=== PATIENT | male | born 1945 | race Caucasian/White ===

== ENCOUNTER 2017-11-09 09:33 | Observation (INO) | payer MEDICARE ==
--- NOTE | 2017-11-09 10:07 | ED ---
GI/ HPI - HPI Summary HPI Summary: This patient is a 71 year old M presenting to [facility] with a chief complaint of bright red blood in diarrhea (3 times) that began at 0200 today. The patient rates the pain 0/10 in severity. Symptoms aggravated by nothing. Symptoms alleviated by nothing. Patient denies being on blood thinners currently. - History of Current Complaint Chief Complaint: EDGIBleed Time Seen by Provider: 11/09/17 09:47 Stated Complaint: RECTAL BLEEDING Hx Obtained From: Patient Onset/Duration: Started Hours Ago, Atraumatic, Still Present Timing: Constant Severity: Mild Current Severity: Mild Vaginal Bleeding Description: Bright Red Pain Intensity: 0 Associated Signs and Symptoms: Positive: Bright Red Blood w/Stool, Diarrhea Aggravating Factor(s): Nothing Alleviating Factor(s): Nothing - Allergy/Home Medications Allergies/Adverse Reactions: Allergies Allergy/AdvReac Type Severity Reaction Status Date / Time Sulfa (Sulfonamide Allergy Unknown Verified 11/09/17 09:53 Antibiotics) Reaction Details Home Medications: Home Medications Finasteride TAB* [Proscar TAB*] 5 mg PO DAILY 11/09/17 [History Confirmed ] Folic Acid 1 mg PO DAILY 11/09/17 [History Confirmed 11/09/17] Vitamin B-12 5,000 Mcg Tab Sl 5,000 mcg PO DAILY 11/09/17 [History Confirmed 02/16] predniSONE 8.5 mg PO DAILY 11/09/17 [History Confirmed 11/09/17] PMH/Surg Hx/FS Hx/Imm Hx Previously Healthy: No Endocrine/Hematology History: Denies: Hx Diabetes, Hx Thyroid Disease Cardiovascular History: Denies: Hx Hypertension, Hx Pacemaker/ICD Respiratory History: Denies: Hx Asthma, Hx Chronic Obstructive Pulmonary Disease (COPD) GI History: Denies: Hx Ulcer History: Reports: Other Problems/Disorders - 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 HERNIA SURGERY. PLANTERS WART REMOVED RIGHT HEEL AGE 18 Infectious Disease History: No Infectious Disease History: Reports: Hx Shingles Denies: Hx Clostridium Difficile, Hx Hepatitis, Hx Human Immunodeficiency Virus (HIV), Hx of Known/Suspected MRSA, Hx Tuberculosis, Hx Known/Suspected VRE , Hx Known/Suspected VRSA, History Other Infectious Disease, Traveled Outside the [place] in Last 30 Days - Family History Known Family History: Positive: Hypertension, Other - leukemia father, colon cancer brother, multiple myeloma, liver CA - Social History Occupation: Retired Lives: Alone Alcohol Use: None Hx Substance Use: No Substance Use Type: Reports: None Hx Tobacco Use: No Smoking Status (MU): Never Smoked Tobacco Review of Systems Negative: Fever Positive: Diarrhea, Other - Positive bright red blood in stool All Other Systems Reviewed And Are Negative: Yes Physical Exam - Summary Physical Exam Summary: VITAL SIGNS: Reviewed. GENERAL: Patient is a well-developed and nourished male who is lying comfortable in the stretcher. Patient is not in any acute respiratory distress. HEAD AND FACE: No signs of trauma. No ecchymosis, hematomas or skull depressions. No sinus tenderness. EYES: PERRLA, EOMI x 2, No injected conjunctiva, no nystagmus. EARS: Hearing grossly intact. Ear canals and tympanic membranes are within normal limits. MOUTH: Oropharynx within normal limits. NECK: Supple, trachea is midline, no adenopathy, no JVD, no carotid bruit, no c- spine tenderness, neck with full ROM. CHEST: Symmetric, no tenderness at palpation LUNGS: Clear to auscultation bilaterally. No wheezing or crackles. CVS: Regular rate and rhythm, S1 and S2 present, no murmurs or gallops appreciated. ABDOMEN: Soft, non-tender. No signs of distention. No rebound no guarding, and no masses palpated. Bowel sounds are normal. RECTAL: Positive gross blood EXTREMITIES: FROM in all major joints, no edema, no cyanosis or clubbing. NEURO: Alert and oriented x 3. No acute neurological deficits. Speech is normal and follows commands. SKIN: Dry and warm Triage Information Reviewed: Yes Vital Signs On Initial Exam: Initial Vitals Temp Pulse Resp BP Pulse Ox 97.0 F 99 16 164/84 99 11/09/17 09:35 11/09/17 09:35 11/09/17 09:35 11/09/17 09:35 11/09/17 09:35 Vital Signs Reviewed: Yes Diagnostics - Vital Signs Vital Signs Temp Pulse Resp BP Pulse Ox 11/09/17 09:35 97.0 F 99 16 164/84 99 - Laboratory Result Diagrams: 11/09/17 11:01 11/09/17 11:01 Lab Statement: Any lab studies that have been ordered have been reviewed, and results considered in the medical decision making process. - Radiology CXR Radiology Interpretation Completed By: Radiologist - CXR reveals, per radiologist, no evidence for acute disease. ED physician has reviewed this radiology report. - EKG 1103 Cardiac Rate: NL EKG Rhythm: Sinus Rhythm - 86 BPM EKG Interpretation: No ST elevation. Diffuse ST abnormality GIGU Course/Dx - Course Assessment/Plan: This patient is a 71-year-old male who presents to the emergency department with a chief complaint of having a rectal bleed. He reports he started approximately at 2 AM and he has had approximately 3 episodes of bright red blood per rectum. Patient denies any abdominal pain. Rectal exam shows positive bright red per rectum. There was no hemorrhoids visible. Patient denies any blood thinners, denies any chest pain, denies any ibuprofen. His last colonoscopy was 10 years ago. Blood test results shows a hemoglobin of 12.8 hematocrit of 37. At this time I discussed my physical exam , findings and test results with Dr. Holden from GI and she agrees to consult for this patient. I also discussed my physical exam, findings and test results with Dr. Alonzo and she agrees to admit the patient to his services for further workup and management. At this point the patient is Hemodynamically stable alert oriented 3. - Diagnoses Differential Diagnoses - Male: Diarrhea, Enterocolitis, Gastroenteritis ( Bacterial) Provider Diagnoses: GI bleed - Physician Notifications Discussed Care Of Patient With: Demi Holden Time Discussed With Above Provider: 12:32 Instructed by Provider To: Other - Consult with Dr. Holden (GI) at 1232. She agrees to see the patient. Consult with Dr. Alonzo (hospitalist) at 1245. She agrees to admit the patient for further evaluation. Discharge - Sign-Out/Discharge Documenting (check all that apply): Patient Departure - Admit to [facility] - Discharge Plan Condition: Stable Disposition: ADMITTED TO [facility] - Billing Disposition and Condition Condition: STABLE Disposition: Admitted to [facility] Attestations Scribe Attestation: This is aranza Sofia documenting for attending Miguel Nino MD. User Type: Provider with Scribe Provider Attestation: The documentation recorded by the scribe accurately reflects the service I personally performed and the decisions made by me.
[2017-11-09] MEDS ORDERED: NS 0.9% 1000 ML* 1,000 ML IV ONE (10:14)
--- NOTE | 2017-11-09 10:38 | RAD ---
INDICATION: GI bleed. COMPARISON: Comparison is made with a prior chest x-ray study from April 11, 2017. TECHNIQUE: A portable view of the chest was obtained. FINDINGS: Cardiac and mediastinal contours appear to be within normal limits. The lungs are underinflated and clear. No pleural effusion is seen. IMPRESSION: NO EVIDENCE FOR ACUTE DISEASE.
[2017-11-09 11:24] LABS: ABS Basophils 0.1 10^3/ul (0-0.2); ABS Eosinophils 0 10^3/ul (0-0.6); ABS Lymphocytes 0.6 10^3/ul (1.0-4.8); ABS Monocytes 0.8 10^3/ul (0-0.8); ABS Neutrophils 8.6 10^3/ul (1.5-7.7); ABS Nucleated RBC 0 10^3/ul; Eosinophil % 0.1 % (0-6); Hematocrit 37 % (42-52); Hemoglobin 12.8 g/dl (14.0-18.0); Lymphocyte % 6.1 % (25-47); Mean Corpuscular HGB Conc 35 g/dl (31-36); Mean Corpuscular Hemoglobin 32 pg (27-31); Mean Corpuscular Volume 91 fL (80-94); Mean Platelet Volume 7.7 um3 (7.4-10.4); Nucleated Red Blood Cells % 0; Platelet Count 296 10^3/ul (150-450); Red Blood Count 4.03 10^6/ul (4.00-5.40); Red Cell Distribution Width 14 % (10.5-15); White Blood Count 10.1 10^3/ul (3.5-10.8)
[2017-11-09 11:33] LABS: INR 1.1 (0.77-1.02)
[2017-11-09 11:40] LABS: EGFR Non-African American 86.5 (>60)
[2017-11-09] MEDS ORDERED: Acetaminophen TAB* 325 MG PO PRN (13:16)
[2017-11-09] MEDS ORDERED: PEG 3000 GI LAVAGE* 1 GALLON PO ONE (13:40)
--- NOTE | 2017-11-09 14:27 | HP ---
CC: Dr. Ashton* [facility] MEDICINE HISTORY AND PHYSICAL: DATE OF ADMISSION: 11/09/17 PRIMARY CARE PHYSICIAN: Dr. Ashton. ATTENDING PHYSICIAN: Dr. Odessa Galvan* (dictation provided by Danielle Paige NP) . CHIEF COMPLAINT: Blood in stool. HISTORY OF PRESENT ILLNESS: Mr. Vidal is a 71-year-old male with a past medical history of polymyalgia rheumatica, on prednisone therapy and recent diagnosis of prostate cancer, not under treatment, who presents to the hospital today with concern for bright red blood per rectum. He states that he has never had any gastroenterological issues and that he is usually very regular with his bowel movements. He does not take ibuprofen or aspirin. He was in his normal state of health yesterday. After going to bed last night he was feeling what he described as some indigestion with a kind of burpy, burning feeling in his abdomen. At 2 a.m., he awoke suddenly with need to defecate. He ran quickly to the bathroom and realized that there was blood in the toilet. He went back to bed and 1 hour later he got up and again had another bout of bloody diarrhea and then about 15 minutes later had a third bout. He went back to bed and woke up at 7 a.m. He went to his primary care physician's office, who sent him directly to the emergency room. In the emergency room, he has had 1 further bout of blood per rectum, which he states was very small. He reports that overnight when he got up to go to the bathroom he was feeling lightheaded, but was not feeling lightheaded here in the emergency room. He denies any abdominal pain. He has had no nausea or vomiting. He reports that he has had two colonoscopies, last one 9 years ago, at [facility] with negative findings per his recollection. He has no known history of diverticulitis or diverticulosis. In the emergency room, Mr. Vidal had labs, which showed hemoglobin of 12.8. His last hemoglobin from our record was from 08/07/17, and it was 15.0. The remainder of his labs are remarkable only for a slightly elevated BUN at 31 , creatinine normal at 0.87. PAST MEDICAL HISTORY: 1. Prostate cancer discovered incidentally, followed by Dr. Yo, not currently undergoing treatment. 2. Polymyalgia rheumatica, on prednisone. 3. Insomnia. MEDICATIONS: 1. Prednisone 8.5 mg p.o. daily. 2. Folic acid 1 mg p.o. daily. 3. Latanoprost 0.005% one drop right eye daily. 4. Vitamin B12 5000 mcg p.o. daily. 5. Finasteride 5 mg p.o. daily. 6. Zolpidem 10 mg p.o. at bedtime. ALLERGIES: To SULFA. FAMILY HISTORY: The patient reports his mother at 87 related to diverticulitis. Father related to cancer of unknown type. SOCIAL HISTORY: No report of alcohol, tobacco, or drug use. The patient lives alone. He states his daughter, Solo, will be the healthcare proxy. REVIEW OF SYSTEMS: A 14-point review of systems was completed with Mr. Vidal and all of those not mentioned above were negative. PHYSICAL EXAMINATION GENERAL: Mr. Vidal is sitting up in the bed. He is in no acute distress. VITAL SIGNS: Temperature 97.0, pulse rate 98, respiratory rate 14, O2 saturation 99% on room air, blood pressure 140/76. LUNGS: Clear to auscultation bilaterally with no accessory muscle use and good aeration. HEART: S1, S2. No murmur, rub or gallop and regular. ABDOMEN: Soft, nontender with bowel sounds positive x4. EXTREMITIES: No cyanosis or edema. NEURO: He is alert. He is oriented x3. He moves all extremities equally. There is no facial asymmetry or focal weakness. Extraocular movements are intact. SKIN: Intact. DIAGNOSTIC STUDIES/LAB DATA: Sodium 139, potassium 4.1, chloride 108, serum bicarbonate 27, BUN 31, creatinine 0.87, glucose 107. WBC 10.1, hemoglobin 12.8 , hematocrit 37, platelet count 296. INR 1.10. Chest x-ray shows no acute intrathoracic process. EKG shows a sinus rhythm with a heart rate of 86 and no evidence of ischemia. ASSESSMENT AND PLAN: Mr. Vidal is a 71-year-old male with a past medical history of polymyalgia rheumatica, on chronic prednisone therapy as well as recent diagnosis of prostate cancer, not undergoing treatment, who presented to the hospital today with concern for 3 bouts of bloody stool at home, now with an additional bout here in the ED. Our plans are for observation in the hospital for the followin. GI bleed. The patient has clinical signs of a lower GI bleed, although his BUN is elevated, which would be more consistent with an upper GI bleed. Regardless, his hemoglobin is 12.8, which is down from his baseline of 15.0. He is hemodynamically stable and is not tachycardic or hypotensive, though he was slightly lightheaded at home. This has resolved here in the ED. Plan to maintain 2 large bore IVs at all times. We will recheck hemoglobin and hematocrit q.6 hours. He will have a clear liquid diet. I have consulted Dr. Holden from the Gastroenterology service for her recommendations regarding anticipated colonoscopy. 2. History of polymyalgia rheumatica. Continue prednisone. 3. History of prostate cancer. Follow up with Dr. Yo. Continue finasteride. 4. Code status is full code. 5. Disposition: To the medical floor with telemetry monitoring. TIME SPENT: Approximately 60 minutes were spent on the admission of this patient, more than half time was spent with the patient at the bedside reviewing the events leading up to this hospitalization, performing a physical examination, and reviewing the plan of care. DANIELLE PAIGE NP [id number]/[facility] #: [id number] [place]
[2017-11-09] MEDS: NS 0.9% 1000 ML* 1,000 ML IV SCH (14:45)
--- NOTE | 2017-11-09 15:32 | CONS ---
CC: Danielle Paige; Demi Holden DO GASTROENTEROLOGY CONSULTATION: DATE OF CONSULT: 11/09/17 HOSPITAL PROVIDER: Danielle Paige NP REASON FOR CONSULT: Rectal bleeding. HISTORY OF PRESENT ILLNESS: Mr. Vidal is a very pleasant 71-year-old gentleman with a history of polymyalgia rheumatica on chronic steroid therapy and recently diagnosed prostate cancer (not on therapy) who presented to the [facility] ER with 3 episodes of bright blood per rectum that began earlier this morning at approximately 2 a.m. The patient denies previous history of the symptoms. He typically has difficulty sleeping at night for which he takes Ambien and last night had extreme difficulty sleeping due some "gurgling" in his abdomen, which awoke him from sleep as well as some mild dyspepsia. He was unable to go back to sleep and experienced the sensation of needing to have a bowel movement. He rushed to toilet due to urgency and he passed significant amount of bright red blood initially and then another hour later he passed another episode of blood. He began to feel slightly fatigued and lightheaded and thus tried to lay down and go to sleep but he had another episode an hour later and passing bright blood in the toilet. He went to his PCP's office in AM and they instructed him to come to the ER. Upon arrival here to the emergency room, he had another episode of bright blood per rectum. He admits to some unintentional weight loss of approximately 6 pounds over the last few months. He attributes this to recent outdoor activity, but admits to good appetite. He denies any current nausea, vomiting, hematemesis, as well as melena. His heartburn has resolved, but he continues to experience intermittent abdominal cramping. He denies fevers and chills. His last colonoscopy was 9 years ago in [place]. He does not recall the results of this test, but was told that he is due for another one for screening purposes. He denies a prior history of an endoscopy. He thinks his paternal grandmother may have had colon cancer. He was recently diagnosed with prostate cancer; however, has not started treatment at this time. He denies dysphagia or odynophagia on additional review of systems. PAST MEDICAL HISTORY: 1. Polymyalgia Rheumatica. 2. Insomnia. 3. Prostate Cancer. PAST SURGICAL HISTORY: 1. Colonoscopy 9 years ago. 2. Tonsillectomy. 3. Hernia surgery. 4. Right heel surgery. HOME MEDICATIONS: 1. Finasteride. 2. Prednisone. 3. Ambien. ALLERGIES: SULFONAMIDES. FAMILY HISTORY: Father with leukemia. Siblings with multiple myeloma, liver carcinoma and questionable colon cancer. SOCIAL HISTORY: He lives alone. Denies tobacco, alcohol, or illicit drug use. REVIEW OF SYSTEMS: Review of systems on a 14-point scale has been reviewed all pertinent positives and negatives have been noted above in the HPI. All other systems are negative. PHYSICAL EXAM: Vital Signs: Temperature 97.0, pulse 99, respirations 16, blood pressure 164/84, pulse ox is 99% on room air. General: The patient is alert and oriented x3 and in no acute distress. Slightly pale appearing, well nourished. HEENT: Normocephalic, atraumatic. Extraocular muscles intact. Anicteric sclerae bilaterally. Cardiovascular: Regular rate and rhythm. Pulmonary: Clear to auscultation bilaterally. Abdomen: Positive bowel sounds. Soft, nontender, nondistended. No rebound, guarding, or rigidity. Bowel sounds present in all 4 quadrants. Rectal: Examination in the emergency room revealed positive for gross blood. Extremities: No clubbing, cyanosis, or edema. Warm to touch. Several tattoos are present. Neurologic: No gross focal deficits are appreciated. LABORATORY AND DIAGNOSTICS: WBC is 10.1, hemoglobin 12.8, hematocrit 37, and platelets 296. INR 1.10, PTT 30.7. Sodium 139, potassium 4.1, chloride 108, CO2 of 27, anion gap 4, BUN 31, creatinine 0.87, calcium 9.8, total bilirubin 0.40, AST 17, ALT 18, alkaline phosphatase 53, total protein 5.7. ASSESSMENT AND PLAN: Mr. Vidal is a 71-year-old gentleman with polymyalgia rheumatica on chronic prednisone, recent diagnosis of prostate cancer who presents to [facility] with 3 episodes of bright red blood per rectum. He is currently hemodynamically stable. His last colonoscopy was performed 9 years ago and he was due for another repeat screening colonoscopy. His hemoglobin is currently stable at 12.8. Given the patient's gastrointestinal symptoms, he may likely have a diverticular bleed which seems to be slowly resolving at this time. Given the patient's family history, his recent diagnosis of prostate cancer would most certainly recommend colonoscopy on this admission to further evaluate the patient's colon and to rule out other causes of bleeding including colorectal carcinoma. The patient is in agreement with this. We will maintain him on a clear liquid diet and give him a colonoscopy preparation later this afternoon and plan for colonoscopy tomorrow morning for further evaluation. In the meantime, he will receive H and H checks every 6 hours and we will transfuse blood if hemoglobin drops below 7 if necessary. He will be admitted to the medical floor. Further recommendations will be provided as the patient's clinical course progresses. Case was discussed with Danielle Paige NP. Thank you, Danielle Paige, for allowing us to participate in the care of your patient. If you should have any further questions or concerns, please do not hesitate to contact us. [id number]/[facility] #: [id number] [place]
[2017-11-09 18:02] LABS: Hematocrit 40 % (42-52); Hemoglobin 13.5 g/dl (14.0-18.0)
[2017-11-09] MEDS: Zolpidem TAB* 10 MG PO SCH (21:50)
[2017-11-10 00:35] LABS: Hematocrit 36 % (42-52); Hemoglobin 12.3 g/dl (14.0-18.0)
[2017-11-10] MEDS: NS 0.9% 1000 ML* 1,000 ML IV SCH ×2 (04:48→22:54)
[2017-11-10] MEDS ORDERED: Magnesium CITRATE* 300 ML BTL PO ONE (07:00)
[2017-11-10 07:10] LABS: Hematocrit 34 % (42-52); Hemoglobin 11.8 g/dl (14.0-18.0)
[2017-11-10 07:30] LABS: EGFR Non-African American 78.2 (>60)
[2017-11-10] MEDS ORDERED: fentaNYL* 50 MCG/ML 2 ML VIAL (100 MCG VIAL) ONE (09:19)
[2017-11-10] MEDS ORDERED: Midazolam* 1 MG/ML 10 ML VIAL (10 MG) ONE (09:19)
[2017-11-10] MEDS: predniSONE TAB* 1 MG PO SCH (13:05)
[2017-11-10] MEDS: predniSONE TAB* 5 MG PO SCH (13:05)
[2017-11-10] MEDS: Finasteride TAB* 5 MG PO SCH (13:06)
--- NOTE | 2017-11-10 16:24 | PN ---
Subjective Date of Service: 11/10/17 Interval History: Colonoscopy this morning was unrevealing. Mr. Vidal has since had a diet and tolerated it well. Had a bm after he returned and it was nonbloody, no melena. He has no pain. No history of liver disease. No NSAIDS. +prednisone at 8.5mg daily Objective Active Medications: Acetaminophen (Tylenol Tab*) 650 mg PO Q6H PRN PRN Reason: PAIN Finasteride (Proscar Tab*) 5 mg PO DAILY [facility] Last Admin: 11/10/17 13:06 Dose: 5 mg Sodium Chloride (Ns 0.9% 1000 Ml*) 1,000 mls @ 75 mls/hr IV PER RATE [facility] Last Admin: 11/10/17 04:48 Dose: 75 mls/hr Prednisone (Deltasone Tab*) 7.5 mg PO DAILY [facility] Last Admin: 11/10/17 13:05 Dose: 7.5 mg Prednisone (Deltasone Tab*) 1 mg PO DAILY [facility] Last Admin: 11/10/17 13:05 Dose: 1 mg Zolpidem Tartrate (Ambien Tab*) 10 mg PO BEDTIME [facility] Last Admin: 11/09/17 21:50 Dose: 10 mg Vital Signs - 8 hr 11/10/17 11:27 Temperature 97.2 F Pulse Rate 70 Respiratory 16 Rate Blood Pressure 105/57 (mmHg) O2 Sat by Pulse 99 Oximetry Oxygen Devices in Use Now: None Appearance: alert, at bedside, well appearing Eyes: No Scleral Icterus Ears/Nose/Mouth/Throat: NL Teeth, Lips, Gums Neck: NL Appearance and Movements; NL JVP Respiratory: Symmetrical Chest Expansion and Respiratory Effort, Clear to Auscultation Cardiovascular: NL Sounds; No Murmurs; No JVD, RRR Abdominal: NL Sounds; No Tenderness; No Distention, No Hepatosplenomegaly Lymphatic: No Cervical Adenopathy Extremities: No Edema, - - tattoos Skin: No Rash or Ulcers Neurological: Alert and Oriented x 3 Result Diagrams: 11/10/17 06:59 11/10/17 06:59 Microbiology and Other Data: Microbiology 11/09/17 10:05 Stool Occult Blood (DANNY) - Final Stool Assess/Plan/Problems-Billing Assessment: 71 year old man with history of PMR on prednisone admitted with [facility] - Patient Problems (1) GI bleed Current Visit: Yes Status: Acute Code(s): K92.2 - GASTROINTESTINAL HEMORRHAGE, UNSPECIFIED SNOMED Code(s): 21444943 Comment: was suspected to be lower, but colonoscopy was negative hgb stable, no transfusion was required, hemodynamically stable GI following, plan for EGD tomorrow add PPI (2) PMR (polymyalgia rheumatica) Current Visit: Yes Status: Acute Code(s): M35.3 - POLYMYALGIA RHEUMATICA SNOMED Code(s): 28508876 Comment: continue prednisone 8.5mg daily
[2017-11-10] MEDS: Pantoprazole IV* 40 MG IV SCH (17:54)
[2017-11-10] MEDS: Zolpidem TAB* 10 MG PO SCH (22:53)
[2017-11-11 07:20] LABS: ABS Basophils 0.1 10^3/ul (0-0.2); ABS Eosinophils 0.1 10^3/ul (0-0.6); ABS Lymphocytes 1.9 10^3/ul (1.0-4.8); ABS Monocytes 1.4 10^3/ul (0-0.8); ABS Neutrophils 7.6 10^3/ul (1.5-7.7); ABS Nucleated RBC 0 10^3/ul; Eosinophil % 0.9 % (0-6); Hematocrit 33 % (42-52); Hemoglobin 11.3 g/dl (14.0-18.0); Lymphocyte % 17.4 % (25-47); Mean Corpuscular HGB Conc 35 g/dl (31-36); Mean Corpuscular Hemoglobin 32 pg (27-31); Mean Corpuscular Volume 92 fL (80-94); Mean Platelet Volume 7.6 um3 (7.4-10.4); Nucleated Red Blood Cells % 0; Platelet Count 270 10^3/ul (150-450); Red Blood Count 3.56 10^6/ul (4.00-5.40); Red Cell Distribution Width 14 % (10.5-15); White Blood Count 11.1 10^3/ul (3.5-10.8)
[2017-11-11] MEDS: predniSONE TAB* 1 MG PO SCH (08:55)
[2017-11-11] MEDS: predniSONE TAB* 5 MG PO SCH (08:58)
[2017-11-11] MEDS: Finasteride TAB* 5 MG PO SCH (09:00)
--- NOTE | 2017-11-11 09:49 | PRO ---
CC: Dr. Ashton; Dr. Odessa Galvan; Dr. Keith; Dr. Demi Holden* GASTROENTEROLOGY OPERATIVE REPORT: DATE OF PROCEDURE: 11/10/17 OPERATIVE PROCEDURE: Colonoscopy to terminal ileum. DIRECTOR OF WOMEN'S SERVICES: Demi Holden DO. ANESTHESIA: 1. Midazolam 8 mg IV. 2. Fentanyl 100 mcg IV. HISTORY OF PRESENT ILLNESS: Casper is a pleasant 71-year-old gentleman with recently diagnosed prostate cancer, who presented to [facility] ER with 3 episodes of bright red blood per rectum. Upon arrival to the emergency room, he was hemodynamically stable. His hemoglobin on admission was noted to be 12.8. His last colonoscopy was performed 9 years ago and was reportedly normal at that time. He has a questionable history of colon cancer among his second degree relatives. PRE-OP DIAGNOSIS: 1. Bright red blood per rectum. POST-OP DIAGNOSES: 1. Normal-appearing terminal ileum. 2. Sigmoid diverticulosis. 3. Five 2 mm to 10 mm sessile ascending colon polyps, status post hot snare polypectomies. 4. Four 2 mm to 10 mm sessile transverse colon polyps with hot snare polypectomies. 5. Small nonbleeding internal hemorrhoids on retroflexion. 6. No active bleeding or previous stigmata of bleeding seen on this examination. 7. Fair colonoscopy preparation. RECOMMENDATIONS: 1. We will follow up with pathology results to determine timing of repeat screening colonoscopy. 2. The patient most likely had a diverticular bleed, however, given the lack of stigmata of previous bleeding seen during this examination, we will recommend an upper endoscopy to be performed tomorrow to rule out a brisk upper gastrointestinal bleed. 3. We will continue the patient on PPI therapy daily for now. 4. Further recommendations will be provided as the patient's clinical course progresses. 5. Case was discussed with patient's fiancee at bedside as well as Dr. Keith. DESCRIPTION OF PROCEDURE: Colonoscopy was explained in detail to the patient. The risks, benefits, complications, alternatives, and possibilities of missed lesions were explained and understood. Complications included, but were not limited to, reaction to anesthesia, aspiration, increased risk of bleeding, infection, and perforation. All questions were answered. The patient demonstrated understanding of the conversation. Informed consent was obtained. Next, the patient was brought to the endoscopy suite, placed in the left lateral recumbent position while blood pressure, cardiac, and oxygen monitors were applied. The patient was found to be a fit candidate for monitored anesthesia. After adequate IV sedation was achieved, a digital rectal exam was performed, which revealed normal sphincter tone. No palpable masses were appreciated. Next, a standard adult Olympus colonoscope was inserted through the rectum, maneuvered all the way to the cecal base where the ileocecal valve and the appendiceal orifice were identified and photographed. Next, the terminal ileum was intubated and was normal appearing. No previous stigmata of bleeding was seen. Subsequently, the colonoscope was withdrawn in a fashion that allowed adequate visualization of the bowel. The patient overall had a fair colonoscopy preparation. Aggressive irrigation and suctioning was performed in order to adequately visualize the mucosa. The overall submucosal vasculature distribution was normal appearing. The cecum was normal. Entry into the ascending colon revealed several sessile polyps ranging from 2 to 10 mm , some were removed via Jumbo cold forceps and some were removed via hot snare. Hemostasis was seen at each polypectomy site. Further withdrawal into the transverse colon revealed again several sessile polyps ranging from 2 to 10 mm. Hot snare polypectomy was performed along with Jumbo cold forceps. Hemostasis was seen at each polypectomy site. Further withdrawal into the descending colon revealed normal appearing mucosa. Entry into the sigmoid colon revealed several large mouth diverticula. Again there was no stigmata of bleeding seen or active bleeding seen. Further withdrawal into the rectum revealed normal-appearing mucosa. On retroflexion, patient had small nonbleeding internal hemorrhoids. These hemorrhoids did not appear to have recently bled. Air was then removed from the patient. Colonoscopy was removed from the patient. Patient tolerated the procedure well. There were no immediate complications. After a period of observation, patient was transferred back to the medical floor for further care. Thank you, Dr. Keith, for allowing us to participate in the care of your patient. If you should have any further questions or concerns, please do not hesitate to contact us. [id number]/[facility] #: [id number] [place]
[2017-11-11] MEDS: NS 0.9% 1000 ML* 1,000 ML IV SCH (12:03)
[2017-11-11] MEDS ORDERED: fentaNYL* 50 MCG/ML 2 ML VIAL (100 MCG VIAL) ONE (13:28)
[2017-11-11] MEDS ORDERED: Midazolam* 1 MG/ML 10 ML VIAL (10 MG) ONE (13:28)
[2017-11-11 16:18] VITALS: BP 110/51
--- NOTE | 2017-11-11 17:09 | PN ---
Subjective Date of Service: 11/11/17 Interval History: Pt feels well and would like to go home. No further bloody BMs. Denies dizziness. Has been ambulating around room and feels "great". Discussed discharge with pt and finance Objective Active Medications: Acetaminophen (Tylenol Tab*) 650 mg PO Q6H PRN PRN Reason: PAIN Finasteride (Proscar Tab*) 5 mg PO DAILY [facility] Last Admin: 11/11/17 09:00 Dose: 5 mg Pantoprazole Sodium (Protonix Iv*) 40 mg IV Q24H [facility] Last Admin: 11/10/17 17:54 Dose: 40 mg Prednisone (Deltasone Tab*) 7.5 mg PO DAILY [facility] Last Admin: 11/11/17 08:58 Dose: 7.5 mg Prednisone (Deltasone Tab*) 1 mg PO DAILY [facility] Last Admin: 11/11/17 08:55 Dose: 1 mg Zolpidem Tartrate (Ambien Tab*) 10 mg PO BEDTIME [facility] Last Admin: 11/10/17 22:53 Dose: 10 mg Vital Signs - 8 hr 11/11/17 11/11/17 11/11/17 11:18 14:51 14:53 Temperature 98.1 F 97.7 F 97.7 F Pulse Rate 72 75 75 Respiratory 14 18 18 Rate Blood Pressure 117/60 110/54 110/54 (mmHg) O2 Sat by Pulse 100 97 97 Oximetry 11/11/17 16:11 Temperature 97.9 F Pulse Rate 86 Respiratory 14 Rate Blood Pressure 110/51 (mmHg) O2 Sat by Pulse 98 Oximetry Oxygen Devices in Use Now: None Result Diagrams: 11/11/17 07:08 11/10/17 06:59 Microbiology and Other Data: Microbiology 11/09/17 10:05 Stool Occult Blood (DANNY) - Final Stool Assess/Plan/Problems-Billing Assessment: 71 year old man with history of PMR on prednisone admitted with [facility] - Patient Problems (1) GI bleed Comment: Appreciate GI consult - Suspect diverticular bleed. EGD and colonoscopy were negative hgb stable, no transfusion was required, hemodynamically stable GI would like to see him in 3 week, possible capsule study Follow up labs this week - PCP to follow up PPI on discharge (2) PMR (polymyalgia rheumatica) Comment: continue prednisone 8.5mg daily (3) DVT prophylaxis Comment: SCDs only in the setting of GI bleed Status and Disposition: plan for DC to home
[2017-11-11] MEDS: Pantoprazole IV* 40 MG IV SCH (17:34)
--- NOTE | 2017-11-11 22:34 | PRO ---
CC: Dr. Ashton* PROCEDURE REPORT: DATE OF PROCEDURE: 11/11/17 PROCEDURE: EGD. INDICATION: Rectal bleeding, negative colonoscopy yesterday. REFERRING PHYSICIAN: Dr. Ashton. MEDICATIONS GIVEN: 1. 25 mcg IV fentanyl. 2. 4 mg IV Versed. DESCRIPTION OF PROCEDURE: After the EGD procedure including the risks, benefits , and alternatives, not limited to perforation, surgery, and/or were explained to Mr. Vidal, written consent was then obtained, IV medication was given and a bite block was placed between the teeth. An Olympus gastroscope was then inserted into the patient's mouth, advanced down the esophagus into the stomach, into the distal duodenum. In the esophagus at the GE junction, the Z-line was intact. No stricture or ring was seen; however, he did have very mild grade A erosive esophagitis. No active bleeding was seen. The scope was advanced through a widely patent GE junction and into the body of the stomach. Retroflexed view was unremarkable. Forward view also was unremarkable. An H. pylori biopsy was obtained. The scope was advanced through a widely patent pylorus into the duodenal bulb, into the distal duodenum , both of which were unremarkable. The scope was then withdrawn from the patient. He tolerated the procedure well and was returned to the recovery room in stable condition. IMPRESSION: 1. Complete upper endoscopy into the distal duodenum with biopsies. 2. Very mild erosive esophagitis. 3. No etiology was seen for his bleeding. I do wonder if it was diverticular in nature. I think at this point, we should trend his hemoglobin, let him eat, and follow him closely. [id number]/[facility] #: [id number] [facility] CENTERCyndee
--- NOTE | 2017-11-12 00:40 | DS ---
CC: Dr. Ashton* DISCHARGE SUMMARY: DATE OF ADMISSION: 11/09/17 DATE OF DISCHARGE: 11/11/17 PROVIDER: Sean Lawler NP ATTENDING PHYSICIAN: Dr. Florez* (report dictated by Sean Lawler NP). PRIMARY CARE PROVIDER: Dr. Ashton. BODY MASKER: Dr. Freeman. DISCHARGE DIAGNOSIS: Gastrointestinal bleed, suspect secondary to diverticular bleed. SECONDARY DIAGNOSES: 1. Polymyalgia rheumatica, on prednisone. 2. History of prostate cancer, followed by Dr. Yo, not currently undergoing treatment. 3. History of insomnia. 4. History of gastroesophageal reflux disease, diet-controlled. DISCHARGE MEDICATIONS: 1. Prednisone 8.5 mg p.o. daily. 2. Proscar 5 mg p.o. daily. 3. Vitamin B12 5000 mcg p.o. daily. 4. Folic acid 1 mg p.o. daily. 5. Ambien 1 tab p.o. daily. 6. Latanoprost 0.005% one drop ophthalmic daily. New medication: Prilosec 20 mg p.o. daily. HISTORY OF PRESENT ILLNESS AND HOSPITAL COURSE: Please see history and physical by Danielle Paige NP for full admission details, but in summary, this is a 71-year-old male with a past medical history of polymyalgia rheumatica on prednisone therapy, recent diagnosis of prostate cancer, not undergoing treatment who presented to the hospital on 11/09/17 with concern for bright red blood per rectum. He reports that he usually does not have problems with his bowel movements, which are very regular. He denied any prior NSAID use. He presented on 11/09/17 reporting he woke up at 2 a.m. felt indigestion with a burning feeling in his abdomen and felt the need to defecate in which he quickly went to the bathroom and realized there was bright red blood in the toilet. He reports that he went back to bed and within a hour later he had another bout of bloody diarrhea in which another report of loose stools reporting bright red blood, also reported noting some what looked like darker blood in the toilet. In the emergency department, the patient presented with a hemoglobin and hematocrit of 12.8 and 33. Today, he is down to 11.3 and 33. He has remained hemodynamically stable throughout the hospitalization. It does appear that on 08/07/17 he had a hemoglobin of 15. He has had no further bloody bowel movements throughout the hospitalization. The patient was seen by Dr. Demi Holden who performed a colonoscopy to the terminal ileum on 11/10/17. She reported in her postop procedural note that there was noted to be a normal-appearing terminal ileum. Sigmoid diverticulosis. He was noted to have five 2-mm to 10-mm sessile ascending colon polyps status post hot snare polypectomies and four 2-mm to 10-mm sessile transverse colon polyps with hot snare polypectomies. There was a small nonbleeding internal hemorrhoid on retroflexion. No active bleeding or previous stigmata of bleeding was seen during the colonoscopy. It was suspected that the patient most likely had a diverticular bleed. The recommendation was for the patient to undergo an upper endoscopy in which he did today with um rn Dr. Freeman. I spoke with Dr. Freeman who reported that he had a normal upper endoscopy today. The patient is stable for discharge to home. Recommendations to follow up with Gastroenterology in 3 weeks and possibly undergo a capsule study at that time. The plan will be to recheck hemoglobin and hematocrit in 2 days with results to the PCP. The patient is stable for discharge to home. DISCHARGE PLAN: 1. Follow up with Dr. Ashton, PCP within 3 to 7 days. 2. Follow up CBC in 3 days on 11/14/17 with results to PCP. I discussed with the patient to call his doctor's office for the followup lab results before the weekend. 3. Discussed worsening signs and symptoms and when to return to the emergency department. TIME SPENT: Approximately 60 minutes was spent on this discharge. SEAN LAWLER, ANTONY [id number]/[facility] #: [id number] [place]
== END 2017-11-11 18:20 | disposition home or self-care (01) ==
LOC: ED 09:33 → MED 13:55
PROVIDERS: ADMIT Internal Medicine; ATTEND Internal Medicine
DX: K92.2 Gastrointestinal hemorrhage, unspecified (principal); R19.7 Diarrhea, unspecified; M35.3 Polymyalgia rheumatica; K63.5 Polyp of colon; G47.00 Insomnia, unspecified; C61 Malignant neoplasm of prostate; D64.9 Anemia, unspecified; D36.9 Benign neoplasm, unspecified site
CPT/HCPCS: 36415; 71045; 80048; 80053; 82270; 85014; 85018; 85025; 85610; 85730; 86850; 86900; 86901; 87077; 88305; 93005; 99156; 99157; 99283; A9270-GY; G0378; J2250; J3010; J7512

== ENCOUNTER 2023-05-24 11:03 | Observation (INO) ==
[2023-05-24 12:08] LABS: ABS Basophils 0.1 10^3/uL (0.0-0.1); ABS Lymphocytes 0.7 10^3/uL (1.0-4.8); ABS Monocytes 0.9 10^3/uL (0.0-1.1); ABS Nucleated RBC 0.01 10^3/ul; Hematocrit 45.9 % (38-53); Hemoglobin 15.5 g/dL (13.2-16.3); Lymphocyte % 4.8 %; Mean Corpuscular Hemoglobin 31.1 pg (27-33); Mean Corpuscular Hgb Conc 33.8 g/dL (31-36); Mean Corpuscular Volume 91.9 fL (80-97); Mean Platelet Volume 8.1 fL (7.5-11.2); Nucleated Red Blood Cells % 0.1 %/100WBC (0.0-0.8); Platelet Count 345 10^3/uL (150-450); Red Blood Count 4.99 10^6/uL (4.06-5.63); Red Cell Distribution Width 14.1 % (12-17); White Blood Count 14.6 10^3/uL (3.6-10.2)
[2023-05-24 12:35] LABS: INR 1.18 (0.83-1.13)
[2023-05-24] MEDS: Al Hydrox/Mg Hydrox/Simet LIQ 30 ML UDC PO ONE (12:52)
[2023-05-24] MEDS: NS 0.9% 500 ml BAG 500 ML IV ONE (12:55)
[2023-05-24 13:06] LABS: ALT 28 U/L (7-52); AST 25 U/L (13-39); Albumin 4.2 g/dL (3.2-5.2); Albumin/Globulin Ratio 1.7 (1-3); Alkaline Phosphatase 76 U/L (35-149); Anion Gap 9 mmol/L (2-16); Blood Urea Nitrogen 23 mg/dL (6-24); CO2 Carbon Dioxide 25 mmol/L (22-32); Calcium 9.7 mg/dL (8.6-10.3); Chloride 104 mmol/L (101-111); Globulin 2.5 g/dL (2-4); Glucose 164 mg/dL (70-100); Magnesium 1.7 mg/dL (1.9-2.7); Potassium 3.8 mmol/L (3.5-5.0); Sodium 138 mmol/L (135-145); Total Bilirubin 0.9 mg/dL (0.2-1.0); Total Protein 6.7 g/dL (6.4-8.9)
[2023-05-24 13:38] LABS: High Sensitivity Troponin 1 Hr 3 pg/mL (<20)
[2023-05-24] MEDS: cefTRIAXone 1 gm/50 mL D5W 1 GM/50 ML BAG IV ONE (13:52)
[2023-05-24] MEDS: Azithromycin 500 mg/250 ml NS 500 MG/250 ML BAG IVPB ONE (13:55)
[2023-05-24] MEDS: Magnesium Sulfate 2 gm BAG 2 GM/50 ML BAG IVPB ONE (14:25)
[2023-05-24 15:47] LABS: High Sensitivity Troponin 3 Hr 3 pg/mL (<20)
[2023-05-24] MEDS: Iohexol 350 (CONTRAST) 500 ML MDV IV ONE (17:12)
[2023-05-24 21:32] LABS: C Reactive Protein < 1.00 mg/L (<8.01)
[2023-05-24 22:32] LABS: Erythrocyte Sed Rate 1 mm/Hr (0-19)
[2023-05-25] MEDS: Enoxaparin 40 MG/0.4 ML SYR SUBCUT SCH (02:23)
[2023-05-25] MEDS: Acetaminophen IV 1 GM/100ML 1,000 MG/100 ML BAG IV PRN (02:23)
[2023-05-25] MEDS: Lactated Ringers 1000 ml BAG 1,000 ML IV ONE (02:50)
[2023-05-25] MEDS: Metoprolol Tartrate 5 mg VIAL 5 ml VIAL (1 mg/ml) IV SCH (03:13)
[2023-05-25 06:00] LABS: Hematocrit 40.4 % (38-53); Hemoglobin 13.7 g/dL (13.2-16.3); Mean Corpuscular Hemoglobin 31.3 pg (27-33); Mean Corpuscular Volume 92.2 fL (80-97); Mean Platelet Volume 8.4 fL (7.5-11.2); Platelet Count 286 10^3/uL (150-450); Red Blood Count 4.38 10^6/uL (4.06-5.63); Red Cell Distribution Width 14.1 % (12-17); White Blood Count 17.5 10^3/uL (3.6-10.2)
[2023-05-25 06:07] LABS: Calcium 8.8 mg/dL (8.6-10.3); Creatinine, Serum 0.7 mg/dL (0.67-1.17); Potassium 3.9 mmol/L (3.5-5.0); eGFR CKD-EPI 94.9 (>60)
[2023-05-25 08:23] LABS: ABS Basophils 0.1 10^3/uL (0.0-0.1); ABS Lymphocytes 1.2 10^3/uL (1.0-4.8); ABS Neutrophils 13.3 10^3/uL (1.5-7.6); Eosinophil % 0.1 %; Lymphocyte % 6.6 %
[2023-05-25] MEDS: Pantoprazole VIAL 40 MG VIAL IV SCH (09:40)
[2023-05-25] MEDS: Aspirin EC 81 mg TAB.EC (enteric coated) PO SCH (12:58)
[2023-05-25] MEDS: cefTRIAXone 1 gm/50 mL D5W 1 GM/50 ML BAG IV SCH (14:35)
[2023-05-25] MEDS: Azithromycin 500 mg/250 ml NS 500 MG/250 ML BAG IVPB SCH (15:26)
[2023-05-25] MEDS: PTO:Netarsudil Mesylat/Lananoprost 0.02%-0.005% EYE DRP 2.5 ml BOTTLE BOTH EYES SCH (23:23)
[2023-05-26 06:41] LABS: Hematocrit 38.4 % (38-53); Hemoglobin 13.1 g/dL (13.2-16.3); Mean Corpuscular Hemoglobin 31.5 pg (27-33); Mean Corpuscular Hgb Conc 34.1 g/dL (31-36); Mean Corpuscular Volume 92.3 fL (80-97); Mean Platelet Volume 8.2 fL (7.5-11.2); Platelet Count 272 10^3/uL (150-450); Red Blood Count 4.16 10^6/uL (4.06-5.63); Red Cell Distribution Width 14.1 % (12-17); White Blood Count 13.6 10^3/uL (3.6-10.2)
[2023-05-26 06:42] LABS: ABS Basophils 0.1 10^3/uL (0.0-0.1); ABS Eosinophils 0.1 10^3/uL (0.0-0.5); ABS Lymphocytes 1.4 10^3/uL (1.0-4.8); ABS Monocytes 2.6 10^3/uL (0.0-1.1); ABS Neutrophils 9.4 10^3/uL (1.5-7.6); Eosinophil % 0.7 %; Lymphocyte % 10.2 %
[2023-05-26 06:53] LABS: Calcium 8.4 mg/dL (8.6-10.3); Creatinine, Serum 0.9 mg/dL (0.67-1.17); Magnesium 1.8 mg/dL (1.9-2.7); Potassium 4.5 mmol/L (3.5-5.0)
[2023-05-26 10:34] VITALS: BP 111/64
== END 2023-05-26 12:53 | disposition home or self-care (01) ==
LOC: EDHOLD 11:03 → ED 11:03 → SUATTDRO 20:10 → MEDTELE 23:27
PROVIDERS: ADMIT Student in an Organized Health Care Education/Training Program; ATTEND Internal Medicine